=== PATIENT | male | born 1985 ===

== ENCOUNTER → 2023-10-05 | Emergency (ER) | payer OTHER ==
[~2023-10-05] MED LIST: CYCLOBENZAPRINE 10 MG TAB ONE; KETOROLAC 30 MG/ML INJ ONE; dexAMETHasone 10 MG/ML VIAL ONE
--- OUTSIDE RECORDS SUMMARY | 2023-10-05 11:44 | XMS REPORT | Continuity of Care Document ---
Author Name Unknown Address [address] [facility]. 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 Name Role Phone UNKNOWN, REFFERING Primary Care Physician JESSICA Negron Attending Clinician UnavailTrudi Greco MD Attending Clinician + Jessica Reid Attending Clinician [phone] Dorian Becker MD Attending Clinician [phone] DORIAN BECKER Attending Clinician Unavailable KRISHAN_Corinne Attending Clinician UnavailMatt Acosta Attending Clinician Unavailable JESSICA LUNDBERG Admitting Clinician DORIAN Kerns Admitting Clinician Unavailable KRISHAN_HGMDAMili Admitting Clinician Unavaila viviana Physician, No Primary or Family Admitting Clinic richie Unavailable Payers Payer Name Policy Type Policy Number Effective Date Expirati on Date Source [employer] [id number] 2023 00:00:00 [facility] (PPO) [id number] Allergies, Adverse Reactions, Alerts Allergy Name Allergy Type Status Severity Reaction(s) Onset Date Inactive Date Treating Clinician Comments Source No Known Allergie s DA Active U 11-20 00:00: 00 [facility] No Known Allergie s DA Active U 11-20 00:00: 00 [facility] No Known Allergie s DA Active U 05-11 00:00: 00 [facility] No Known Allergie s DA Active U 05-11 00:00: 00 [facility] No Known Contrast Allergie s DA Active U 03-25 00:00: 00 [facility] No Known Drug Allergie s DA Active U 03-25 00:00: 00 [facility] No Known Food Allergie s DA Active U 03-25 00:00: 00 [facility] No Known Other Allergie s DA Active U 03-25 00:00: 00 [facility] NO KNOWN ALLERGIE S Drug Class Active [facility] Social History Social Habit Start Date Stop Date Quantity Comments Source Sexual orientation [facility] Sex Assigned At 1985 00:00:00 1985 00:00:00 [facility] Smoking Status Start Date Stop Date Source Tobacco smoking consumption unknown [facility] Medications Ordered Medication Name Filled Medication Name Start Date Stop Date Current Medication? Ordering Clinician Indication Dosage Frequency Signature (SIG) Comments Components Source acetaminoph en (TYLENOL) tablet 1,000 mg 2022-08 18:30: 00 06-09 18:00 :00 No 1000mg 1,000 mg, Oral, ONCE, 1 dose, On Wed06/09/23 at 1330, Routine [facility] NaCl 0.9% (NS) bolus infusion 1,000 mL 2022-08 18:15: 00 06-09 20:34 :00 No 1000mL at 999 mL/hr, 1,000 mL, IV Infusion, ONCE, 1 dose, On Wed06/09/23 at 1315, ALON [facility] bromphenira mine-pseudo ephedrine-D M (BROMFED DM) 2-30-10 mg/5 mL syrup 2022-08 018 00:00: 00 Yes [id number] 5mL Take 5 mL by mouth 4 (four) times daily as needed for Congestion /Allergies or Cough. [facility] ondansetron (ZOFRAN-ODT ) disintegrat ing tablet 4 mg 2022-08 02:30: 00 05-26 01:44 :00 No 4mg 4 mg, Oral, ONCE, 1 dose, On Wed05/25/23 at 2130, [facility] HYDROcodone -acetaminop hen (NORCO) 10-325 mg tablet 1 tablet 2022-08 02:30: 00 05-26 01:44 :00 No 1{tbl} 1 tablet, Oral, ONCE, 1 dose, On Wed05/25/23 at 2130, [facility] acetaminoph en (TYLENOL) tablet 1,000 mg 2022-08 00:07: 00 05-26 00:13 :00 No 1000mg 1,000 mg, Oral, ONCE, 1 dose, On Wed05/25/23 at 1915, [facility] azithromyci n (ZITHROMAX Z-MADI) 250 mg tablet 2022-08 0 00:00: 00 Yes [id number] Take 500 mg on day 1 then 250 mg daily on days 2-5 [facility] ondansetron 4 mg disintegrat ing tablet 2022-08 0 00:00: 00 Yes [id number] 4mg Take 1 tablet by mouth every 12 (twelve) hours as needed for Nausea and Vomiting (N/V). [facility] benzonatate 100 mg capsule 2022-08 0 00:00: 00 Yes [id number] 100mg Take 1 capsule by mouth 3 (three) times daily as needed for Cough. [facility] azithromyci n (ZITHROMAX Z-MADI) 250 mg tablet 2022-08 0 00:00: 00 Yes [id number] Take 500 mg on day 1 then 250 mg daily on days 2-5 [facility] ondansetron 4 mg disintegrat ing tablet 2022-08 0-03 00:00: 00 Yes [id number] 4mg Take 1 tablet by mouth every 12 (twelve) hours as needed for Nausea and Vomiting (N/V). [facility] benzonatate 100 mg capsule 2022-08 0- 00:00: 00 Yes [id number] 100mg Take 1 capsule by mouth 3 (three) times daily as needed for Cough. [facility] acetaminoph en-codeine 300-30 mg tablet 2022-08 0- 00:00: 00 06-02 04:59 :00 No [id number] 1{tbl} Take 1 tablet by mouth every 6 (six) hours as needed for Pain (scale 7-10) for up to 7 days. Indication s: acute pain [facility] predniSONE 20 mg tablet 2022-08 0 00:00: 00 05-29 04:59 :00 No [id number] 20mg Take 1 tablet by mouth in the morning and 1 tablet in the evening. Do all this for [address] [facility] Vital Signs Vital Name Observation Time Observation Value Comments S ource Systolic blood pressure 2023-06-09 20:37:00 135 mm[Hg] [facility] Diastolic blood pressure 2023-06-09 20:37:00 70 mm[Hg] [facility] Heart rate 2023-06-09 20:37:00 72 /min [facility] Respiratory rate 2023-06-09 20:37:00 16 /min [facility] Oxygen saturation in Arterial blood by Pulse oximetry 2023-06-09 20:37:00 95 /min [facility] Body temperature 2023-06-09 17:00:00 37.28 Alina [facility] Body height 2023-06-09 17:00:00 175.3 cm [facility] Body weight 2023-06-09 17:00:00 102.967 kg [facility] BMI 2023-06-09 17:00:00 33.52 kg/m2 [facility] Systolic blood pressure 2023-05-26 02:00:00 110 mm[Hg] [facility] Diastolic blood pressure 2023-05-26 02:00:00 66 mm[Hg] [facility] Heart rate 2023-05-26 02:00:00 95 /min [facility] Body temperature 2023-05-26 02:00:00 37.72 Alina [facility] Respiratory rate 2023-05-26 02:00:00 16 /min [facility] Oxygen saturation in Arterial blood by Pulse oximetry 2023-05-26 02:00:00 100 /min [facility] Procedures Procedure Date / Time Performed Performing Clinicia n Source XR CHEST 2 VW 2023-06-09 18:11:06 Jessica Lundberg [facility] LIPASE 2023-06-09 18:01:00 Jessica Lundberg [facility] TROPONIN I 2023-06-09 18:01:00 Jessica Lundberg [facility] COMP. METABOLIC PANEL (37412) 2023-06-09 18:01:00 Jessica Lundberg [facility] CBC WITH DIFF 2023-06-09 18:01:00 Jessica Lundberg [facility] URINALYSIS 2023-06-09 18:01:00 Jessica Lundberg [facility] RAPID STREP SCREEN FOR GROUP A 2023-06-09 18:01:00 Jessica Lundberg [facility] RAPID INFLUENZA A/B 2023-06-09 18:01:00 Prateek Lundberg [facility] N-TERMINAL PRO-BNP 2023-06-09 18:01:00 Sherry Lundberg [facility] COVID-19 (ID NOW RAPID TESTING) 2023-06-09 18:01:00 Jessica Lundberg [facility] CONSENT/REFUSAL FOR DIAGNOSIS AND TREATMENT 2023-06-09 16:51:15 Doctor Unassigned, [place] [facility] RAPID STREP SCREEN FOR GROUP A 2023-05-26 00:14:00 Sky Boateng [facility] RAPID INFLUENZA A/B 2023-05-26 00:14:00 Dannie Boateng [facility] COVID-19 (ID NOW RAPID TESTING) 2023-05-26 00:14:00 Sky Boateng [facility] CONSENT/REFUSAL FOR DIAGNOSIS AND TREATMENT 2023-05-25 23:49:39 Doctor Unassigned, [place] [facility] NOTICE OF PRIVACY PRACTICES 2023-05-25 23:49:20 Doctor Unassigned, [place] [facility] Encounters Start Date/Time End Date/Time Encounter Type Admission Type Attending [facility] Care Facility Care Department Encounter ID Source 2019-11-21 14:43:00 Inpatient [facility] [id number] [facility] 2019-10-01 17:53:00 Inpatient [facility] NCER [id number] [facility] 2023-06-09 12:02:00 2023-06-09 15:39:00 Emergency X JESSICA LUNDBERG [facility] ERT [id number] [facility] 2023-06-09 12:02:00 2023-06-09 15:39:00 Emergency Trudi Barnard Folusho F [facility] [id number] [facility] 2023-05-25 19:08:00 2023-05-25 21:31:00 Emergency Dorian Becker [facility] [id number] [facility] 2023-05-25 19:08:00 2023-05-25 21:31:00 Emergency X DORIAN BECKER [facility] ERT [id number] [facility] 2020-12-24 03:12:00 2020-12-24 03:12:00 Outpatient GC_HGMDA_Go nzalez_J PRIV PRIV [id number] [facility] 2020-12-19 03:56:00 2020-12-19 03:56:00 Outpatient GC_HGMDA_Go nzalez_J [facility] PRIV [id number] [facility] 2020-12-19 03:56:00 2020-12-19 03:56:00 Outpatient GC_HGMDA_Go nzalez_J [facility] PRIV [id number] [facility] 2019-12-30 12:20:00 2019-12-30 12:20:00 Outpatient GC_HGMDA_Go nzalez_J [facility] PRIV [id number] [facility] 2019-11-21 14:43:00 2019-11-21 15:31:00 Emergency EM Matt Nunez [facility] [id number] [facility] 2019-05-05 23:52:00 2019-05-05 23:52:00 Emergency E [facility] [id number] [facility] 2017-09-20 22:08:00 2017-09-20 22:08:00 Emergency E [facility] MED [id number] [facility] Results Test Description Test Time Test Comments Results Result Co mments Source [facility] [id number] 19:11:06* Test Item Value Reference Range Interpretation Comme nts NT-proBNP (test code = 97018-8) 34 pg/mL <=125 Lab Interpretation (test cod e = 32528-1) Normal [facility]OLIC PANEL (46072)2023-06-09 19:02:07* Test Item Value Reference Range Interpretation Comme nts NA (test code = 5477501498) 137 mmol/L 135-145 K (test code = 3478947396) 3.9 mmol/L 3.5-5.0 CL (test code = 2027242636) 100 mmol/L 98-108 CO2 TOTAL (test code = 5230142932) 28 mmol/L 23-31 AGAP (test code = 8230028575) 9 2-16 BUN (test code = 3334692245) 11 mg/dL 7-23 GLUCOSE (test code = 2448919309) 98 mg/dL 70-110 CREATININE (test code = 0938290290) 0.70 mg/dL 0.60-1.25 TOTAL BILI (test code = 0353389708) 0.5 mg/dL 0.1-1.1 CALCIUM (test code = 9992117810) 8.7 mg/dL 8.6-10.6 T PROTEIN (test code = 4876306132) 7.4 g/dL 6.3-8.2 ALBUMIN (test code = 1814211252) 4.0 g/dL 3.5-5.0 ALK PHOS (test code = 8919342168) 51 U/L 34-122 ALTv (test code = 1742-6) 33 U/L 5-50 AST(SGOT) (test code = 3429856893) 27 U/L 13-40 eGFR (test code = 7918596401) 126.2 mL/min/1.73m2 DANIELLE (test code = DANIELLE) Association of Glomerular Filtration Rate (GFR) and Staging of Kidney Disease* + + +- +| GFR (mL/min/1.73 m2) ?| With Kidney Damage ?| ?Without Kidney Damage+ ------+ ----+ ------+| ?>90 ?| ?Stage one ?| ? Normal ?+ -+ + -+| ?60-89 ?| ?Stage two ?| ? Decreased GFR ? + + +- +| ?30-59 ?| ?Stage three ?| ? Stage three ? + + +- +| ?15-29 ?| ?Stage four ? | ? Stage four ?+ -+ + -+| ?<15 (or dialysis) ? ?| ?Stage five ? | ? Stage five ?+ -+ + -+ *Each stage assumes the associated GFR level has been in effect for at least three months. ?Stages 1 to 5, with or without kidney disease, indicate chronic kidney disease. Notes: Determination of stages one and two (with eGFR >59mL/min/1.73 m2) requires estimation of kidney damage for at least three months as defined by structural or functional abnormalities of the kidney, manifested by either:Pathological abnormalities or Markers of kidney damage (including abnormalities in the composition of the blood or urine or abnormalities in imaging tests). [facility] 19:01:47* Test Item Value Reference Range Interpretation Comme nts LIPASE (test code = 5800509232) 186 U/L 0-220 Lab Interpretation (test cod e = 72077-3) Normal [facility] WITH [id number] 18:56:07* Test Item Value Reference Range Interpretation Comme nts WBC (test code = 6690-2) 11.59 See_Comment H [Automated messa ge] The system which generated this result transmitted reference range: 4.20 - 10.70 10*3/?L. The reference range was not used to interpret this result as normal/abnormal. RBC (test code = 789-8) 4.64 See_Comment [Automated messa ge] The system which generated this result transmitted reference range: 4.26 - 5.52 10*6/?L. The reference range was not used to interpret this result as normal/abnormal. HGB (test code = 718-7) 15.1 g/dL 12.2-16.4 HCT (test code = 4544-3) 42.1 % 38.4-49.3 MCV (test code = 787-2) 90.7 fL 81.7-95.6 MCH (test code = 785-6) 32.5 pg 26.1-32.7 MCHC (test code = 786-4) 35.9 g/dL 31.2-35.0 H RDW-SD (test code = 11435-7) 40.5 fL 38.5-51.6 RDW-CV (test code = 788-0) 12.3 % 12.1-15.4 PLT (test code = 777-3) 364 See_Comment H [Automated messa ge] The system which generated this result transmitted reference range: 150 - 328 10*3/?L. The reference range was not used to interpret this result as normal/abnormal. MPV (test code = 67726-4) 9.2 fL 9.8-13.0 L NRBC/100 WBC (test code = 8531261932) 0.0 See_Comment [Automated Enablon ssage] The system which generated this result transmitted reference range: 0.0 - 10.0 /100 WBCs. The reference range was not used to interpret this result as normal/abnormal. NRBC x10^3 (test code = 1020758958) See_Comment [Automated messa ge] The system which generated this result transmitted reference range: 10*3/?L. The reference range was not used to interpret this result as normal/abnormal. GRAN MAT (NEUT) % (test code = 770-8) 70.5 % IMM GRAN % (test code = 1489369339) 0.60 % LYMPH % (test code = 736-9) 14.5 % MONO % (test code = 5905-5) 9.8 % EOS % (test code = 713-8) 3.5 % BASO % (test code = 706-2) 1.1 % GRAN MAT x10^3(ANC) (test code = 5447003976) 8.16 10*3/uL 1.99-6.95 H IMM GRAN x10^3 (test code = 3140603343) 0.07 10*3/uL 0.00-0.06 H LYMPH x10^3 (test code = 731-0) 1.68 10*3/uL 1.09-3.23 MONO x10^3 (test code = 742-7) 1.14 10*3/uL 0.36-1.02 H EOS x10^3 (test code = 711-2) 0.41 10*3/uL 0.06-0.53 BASO x10^3 (test code = 704-7) 0.13 10*3/uL 0.01-0.09 H Lab Interpretation (test code = 24869-9) Abnormal [facility] PCR [id number] 01:32:00* Test Item Value Reference Range Interpretation Comme nts STREPTOCOCCUS DYSGALACTIAE (test code = STREPGC) NEGATIVE FOR G/C NEGATIVE STREPA MOLECULAR (test code = STREPAMOL) NEGATIVE FOR GRP A NEGATIVE - XR CHEST 1 [id number] 14:57:00FAX: Matt Nunez MD [phone] [place]: [place] St: PRE Name: SANCHO WHITE [facility] FSED : 1985 Age/S: 34/M [address] [facility] [address] Unit #: [id number] Loc: [facility] [address] Phys: Matt Nunez MD [place] [id number] Acct: [id number] Dis Date: Status: PRE ER PHONE #: Exam Date: 11/21/2019 9327 FAX #: Reason: concern for PNA EXAMS: CPT CODE: [id number] XR CHEST 1 V 62953 HISTORY: Pneumonia. COMPARISON: None available. Location: [facility]. No acute infiltrates, effusion or congestion is noted. The cardiac and mediastinal silhouette are within normal limits. IMPRESSION: No acute infiltrates, effusion or congestion. at 8496 Reported and signed by: Juan Alarcon M.D. CC: Matt Nunez MD Technologist: HUI CHOI(R)(CT) Trnscrd Date/Time/By: 11/21/2019 (0515) : By: [email or web address] Orig Print D/T: S: 11/21/2019 (0123) PAGE 1 Signed Report- XR CHEST 1 [id number] 14:57:00FAX: Matt Nunez MD [phone] [place]: [place] St: DEP Name: SANCHO WHITE [facility] FSED : 1985 Age/S: 34/M [address] [facility] N Unit #: [id number] Loc: [facility] [address] Phys: Matt Nunez MD [place], [place] [address] Acct: [id number] Dis Date: Status: DEP ER PHONE #: Exam Date: 11/21/20191456 FAX #: Reason: concern for PNA EXAMS: CPT CODE: [id number] XR CHEST 1 V 21960 HISTORY: Pneumonia. COMPARISON: None available. Location: [facility]. No acute infiltrates, effusion or congestion is noted. The cardiac and mediastinal silhouette are within normal limits. IMPRESSION: No acute infiltrates, effusion or congestion. at 1457 Reported and signed by: Juan Alarcon M.D. CC: Matt Nunez MD Technologist: HUI ABDUL RT(R)(CT) Trnscrd Date/Time/By: 11/21/2019 (7493) : By: [email or web address] Orig Print D/T: S: 11/21/2019 (8192) PAGE 1 Signed ReportSTREPTOCOCCUS PCR SCREEN 2019-10-02 21:15:00* Test Item Value Reference Range Interpretation Comme nts STREPTOCOCCUS DYSGALACTIAE (test code = STREPGC) NEGATIVE FOR G/C NEGATIVE STREPA MOLECULAR (test code = STREPAMOL) NEGATIVE FOR GRP A NEGATIVE - XR CHEST 2 [id number] 18:43:00FAX: Pau Justin MD [phone] [place]: [place] St: REG Name: WHITESANCHO CHARLES [facility] FSED : 1985 Age/S: 34/M [address] [facility] N Unit #: [id number] Loc: [facility] [address] Phys: Jesse Justin MD [place], [place] [address] Acct: [id number] Dis Date: Status: REG ER PHONE #: Exam Date: 10/01/2019 1832 FAX #: Reason: cough EXAMS: CPT CODE: [id number] XR CHEST 2 V 39870 EXAM: Chest X-ray, 2 views; CLINICAL HISTORY: Cough and shortness of breath; FINDINGS: The lungs are clear, no infiltrates, no edema; no effusions; no pneumothorax; normal cardiomediastinal silhouette. IMPRESSION: Normal chest x-ray. Location code: at 1843 Reported and signed by: Sotero Tobin M.D. CC: Pau Justin MD Technologist: Enrrique Hill Trnscrd Date/Time/By: 10/01/2019 (1842) : By: [email or web address] Orig Print D/T: S: 10/01/2019 (1845) PAGE 1 [facility] [id number] 00:24:15* Test Item Value Reference Range Interpretation Comme nts Glucose POC (test code = Glucose POC) 98 mg/dL 70-115 If you consi epifanio your patient critically ill, the Alayna-Accu Check Infrom II meter should not be used for Glucose determination. Draw a venous Glucose and send to the main Lab for analysis. Comprehensive Metabolic [id number] 22:26:12* Test Item Value Reference Range Interpretation Comme nts Sodium Level (test code = So dium Level) 144.0 mmol/L 135.0-145.0 Potassium Level (test code = Potassium Level) 3.6 mmol/L 3.5-5.1 Chloride Level (test code = Chloride Level) 105 mmol/L 98-105 CO2 (test code = CO2) 27 mmol/L 22-29 Anion Gap (test code = Anion Gap) 12 mmol/L 7-16 BUN (test code = BUN) 12.20 mg/dL 6.00-20.00 Creatinine Level (test code = Creatinine Level) 0.90 mg/dL 0.70-1.20 BUN/Creat Ratio (test code = BUN/Creat Ratio) 14 N Glucose Level (test code = Glucose Level) 138 mg/dL 70-115 H Calcium Level (test code = Calcium Level) 9.0 mg/dL 8.3-10.5 Alk Phos (test code = Alk Phos) 62 U/L 40-129 Bilirubin Total (test code = Bilirubin Total) 0.3 mg/dL 0.1-0.9 Albumin Level (test code = Albumin Level) 4.6 g/dL 3.5-5.2 Protein Total (test code = Protein Total) 7.3 g/dL 6.4-8.3 ALT (test code = ALT) 44 U/L 1-41 H AST (test code = AST) 28 U/L 1-40 Globulin (test code = Globulin) 2.7 g/dL 2.9-3.1 L A/G Ratio (test code = A/G Ratio) 1.7 ratio N Comprehensive Metabolic [id number] 22:26:12* Test Item Value Reference Range Interpretation Comme nts Sodium Level (test code = Sodium Level) 144.0 mmol/L 135.0-145.0 Potassium Level (test code = Potassium Level) 3.6 mmol/L 3.5-5.1 Chloride Level (test code = Chloride Level) 105 mmol/L 98-105 CO2 (test code = CO2) 27 mmol/L 22-29 Anion Gap (test code = Anion Gap) 12 mmol/L 7-16 BUN (test code = BUN) 12.20 mg/dL 6.00-20.00 Creatinine Level (test code = Creatinine Level) 0.90 mg/dL 0.70-1.20 BUN/Creat Ratio (test code = BUN/Creat Ratio) 14 N Glucose Level (test code = Glucose Level) 138 mg/dL 70-115 H Calcium Level (test code = Calcium Level) 9.0 mg/dL 8.3-10.5 Alk Phos (test code = Alk Phos) 62 U/L 40-129 Bilirubin Total (test code = Bilirubin Total) 0.3 mg/dL 0.1-0.9 Albumin Level (test code = Albumin Level) 4.6 g/dL 3.5-5.2 Protein Total (test code = Protein Total) 7.3 g/dL 6.4-8.3 ALT (test code = ALT) 44 U/L 1-41 H AST (test code = AST) 28 U/L 1-40 Globulin (test code = Globulin) 2.7 g/dL 2.9-3.1 L A/G Ratio (test code = A/G Ratio) 1.7 ratio N eGFR AA (test code = eGFR AA) >60 mL/min/1.73 m2 N eGFR (estimated Glomerular Filtration Rate) is an estimated value, calculated from the patient's serum creatinine using the MDRD equation. It is NOT the patient's actual GFR. The eGFR provides a more clinically useful measure of kidney disease than serum creatinine alone.This calculation takes sex and race into account, if the information is provided. If the race is not provided, and the patient is -[place], multiply by 1.212. If sex is not provided, and the patient is female, multiply by 0.742. Results for patients <18 years of age have not been validated by the MDRD study and should be interpreted with caution. eGFR Result Interpretation:eGFR > or = 60 is in the Normal RangeeGFR < 60 may mean kidney diseaseeGFR < 15 may mean kidney failure Ranges recommended by the National Kidney Foundation, http://nkdep.nih.gov Comprehensive Metabolic [id number] 22:26:12* Test Item Value Reference Range Interpretation Comme nts Sodium Level (test code = Sodium Level) 144.0 mmol/L 135.0-145.0 Potassium Level (test code = Potassium Level) 3.6 mmol/L 3.5-5.1 Chloride Level (test code = Chloride Level) 105 mmol/L 98-105 CO2 (test code = CO2) 27 mmol/L 22-29 Anion Gap (test code = Anion Gap) 12 mmol/L 7-16 BUN (test code = BUN) 12.20 mg/dL 6.00-20.00 Creatinine Level (test code = Creatinine Level) 0.90 mg/dL 0.70-1.20 BUN/Creat Ratio (test code = BUN/Creat Ratio) 14 N Glucose Level (test code = Glucose Level) 138 mg/dL 70-115 H Calcium Level (test code = Calcium Level) 9.0 mg/dL 8.3-10.5 Alk Phos (test code = Alk Phos) 62 U/L 40-129 Bilirubin Total (test code = Bilirubin Total) 0.3 mg/dL 0.1-0.9 Albumin Level (test code = Albumin Level) 4.6 g/dL 3.5-5.2 Protein Total (test code = Protein Total) 7.3 g/dL 6.4-8.3 ALT (test code = ALT) 44 U/L 1-41 H AST (test code = AST) 28 U/L 1-40 Globulin (test code = Globulin) 2.7 g/dL 2.9-3.1 L A/G Ratio (test code = A/G Ratio) 1.7 ratio N eGFR AA (test code = eGFR AA) >60 mL/min/1.73 m2 N eGFR (estimated Glomerular Filtration Rate) is an estimated value, calculated from the patient's serum creatinine using the MDRD equation. It is NOT the patient's actual GFR. The eGFR provides a more clinically useful measure of kidney disease than serum creatinine alone.This calculation takes sex and race into account, if the information is provided. If the race is not provided, and the patient is -[place], multiply by 1.212. If sex is not provided, and the patient is female, multiply by 0.742. Results for patients <18 years of age have not been validated by the MDRD study and should be interpreted with caution. eGFR Result Interpretation:eGFR > or = 60 is in the Normal RangeeGFR < 60 may mean kidney diseaseeGFR < 15 may mean kidney failure Ranges recommended by the National Kidney Foundation, http://nkdep.nih.gov eGFR Non-AA (test code = eGFR Non-AA) >60.00 mL/min/1.73 m2 N eGFR (estimated Glomerular Filtration Rate) is an estimated value, calculated from the patient's serum creatinine using the MDRD equation. It is NOT the patient's actual GFR. The eGFR provides a more clinically useful measure of kidney disease than serum creatinine alone.This calculation takes sex and race into account, if the information is provided. If the race is not provided, and the patient is -[place], multiply by 1.212. If sex is not provided, and the patient is female, multiply by 0.742. Results for patients <18 years of age have not been validated by the MDRD study and should be interpreted with caution. eGFR Result Interpretation:eGFR > or = 60 is in the Normal RangeeGFR < 60 may mean kidney diseaseeGFR < 15 may mean kidney failure Ranges recommended by the National Kidney Foundation, http://nkdep.nih.gov Urinalysis with Culture, if feqawdkpq1707-63-37 22:05:22* Test Item Value Reference Range Interpretation Comme nts UA Color (test code = UA Color) YELLO Yellow UA Appear (test code = UA Appear) CLEAR Clear UA pH (test code = UA pH) 5 N UA Spec Grav (test code = UA Spec Grav) 1.027 1.001-1.035 UA Glucose (test code = UA Glucose) 300 mg/dL Negative A UA Bili (test code = UA Bili) NEG Negative UA Ketones (test code = UA Ketones) 5 mg/dL Negative UA Blood (test code = UA Blood) NEG Negative UA Protein (test code = UA Protein) NEG Negative UA Urobilinogen (test code = UA Urobilinogen) 0.2 mg/dL N UA Nitrite (test code = UA Nitrite) NEG Negative UA Leuk Est (test code = UA Leuk Est) NEG Negative UA Micro Ind? (test code = UA Micro Ind?) Not Indicated Not Indicated Result cre ated by rule GL_SJM_UA_MICRO_IN D CT Stone [id number] 21:17:07Patient: SANCHO WIHTE Date/Time04/30/2019 21:01 CDTReason for ExamFlank painReportCT Stone ProtocolHISTORY: Flank painCOMPARISON: CT abdomen and pelvis dated March 01, 2011TECHNIQUE: Axial images of the abdomen and pelvis were obtained without intravenous or oral contrast. Coronal and sagittal reformats were provided. One or more of the following dose reduction techniqueswere used: Automated exposure control, adjustment of the mA and/or kV according to patient size, and/or utilization of iterative reconstruction technique.FINDINGS:Lower thorax: Unremarkable.Hepatobiliary: Benign-appearing calcifications are seen in segment IV of the liver adjacent to the gallbladder (series 2, image 57). These are new from the comparison study. No intra or extrahepatic biliary ductal dilatation is identified.Gallbladder: No calcified gallstones are identified. The gallbladder wall appears normal.Spleen: Unremarkable.Pancreas: Unremarkable.Adrenals: Unremarkable.Kidneys/ureters: A 1.9 cm cyst is seen in the mid left kidney. No hydronephrosis or nephrolithiasis is identified.Bowel: The stomach is moderately distended with fluid and food debris. The small bowel loops are nondilated. The appendix is normal. A moderate amount of stool seen in the colon and rectum.Pelvic organs/bladder: The urinary bladder is unremarkable.Vessels: Unremarkable.Lymph nodes: No lymphadenopathy.Peritoneum/Retroperitoneum: No ascites or free air is identified.Bones/soft tissues: No destructive bony lesions.IMPRESSION:1. No renal or ureteral stone is identified.2. No acute abdominal finding.Exam Date/Time04/30/2019 21:01 CDTReportLOCATION: R16 Final Dictated by: MD Smalls Adam FDictated DT/TM: 04/30/2019 9:10 pmSigned by: MD Smalls Adam FSigned (Electronic Signature): 04/30/2019 9:17 pmComplete Blood Count with Rgycfrxhvwbn1566-12-03 20:48:48* Test Item Value Reference Range Interpretation Comme nts WBC (test code = WBC) 12.4 x10 4.4-10.5 H RBC (test code = RBC) 5.01 x10 4.10-5.70 Hgb (test code = Hgb) 15.2 g/dL 13.4-17.4 Hct (test code = Hct) 44.0 % 38.7-52.0 MCV (test code = MCV) 87.80 fL 80.00-100.00 MCHC (test code = MCHC) 34.50 g/dL 32.00-37.50 MCH (test code = MCH) 30.3 pg 27.0-32.5 RDW CV (test code = RDW CV) 12.1 % 11.5-14.5 Platelets (test code = Platelets) 326.0 x10 140.0-440.0 MPV (test code = MPV) 8.9 fL N Slide Review (test code = Slide Review) Auto Auto Result crea asuncion by GL_SJM_SLIDE_REV_AUTO nRBC (test code = nRBC) 0 N NRBC Abs (test code = NRBC Abs) 0.00 x10 N IPF (test code = IPF) 0 % N Automated [id number] 20:48:48* Test Item Value Reference Range Interpretation Comme nts Neutro Auto (test code = Krissy tro Auto) 63.2 % 36.0-70.0 Lymph Auto (test code = Lymph Auto) 24.9 % 12.0-44.0 [place] Auto (test code = [place] Auto) 6.7 % 0.0-11.0 Eos, Auto (test code = Eos, Auto) 4.1 % 0.0-7.0 Basophil Auto (test code = B asophil Auto) 0.7 % 0.0-2.0 Neutro Absolute (test code = Neutro Absolute) 7.8 x10 1.6-7.4 H Lymph Absolute (test code = Lymph Absolute) 3.09 x10 .50-4.60 [place] Absolute (test code = M beth Absolute) .83 x10 .00-1.20 Eos Absolute (test code = Eo s Absolute) 0.51 x10 0.00-0.74 Baso Absolute (test code = B aso Absolute) 0.09 x10 0.00-0.21 IG [id number] 20:48:48* Test Item Value Reference Range Interpretation Comme nts IG (test code = IG) 0.4 % 0.0-5.0 IG Abs (test code = IG Abs) 0 x10 N XR SHOULDER 2+V.DRBNDXVR-IJBKZ7605-16-30 01:00:25STUDY: Shoulder radiographHISTORY: Pain COMPARISON: No PriorTECHNIQUE: Internal rotation, external rotation and transscapular Y viewof the right shoulder. This was performed during after hours services 09/21/2017 1:00 AM.SITE: 16FINDINGS:There is no acute fracture or glenohumeral dislocation. The acromioclavicular joint is intact. There are no abnormal soft tissuecalcifications in the region ofthe rotator cuff to suggest calcifictendinitis. The visualized lung is clear.IMPRESSION:No acute osseous abnormality of the right shoulder. Notes Date/Time Note Provider Source 2019-11-21 15:16:00 [id number]++mUbUAWKGNRPECmknYjjsd+ OuT2UThIIv5yMpd3uOsavztsxbz7ENzOiE2739-39-25E83:1 6:00 [facility] ([facility])EMERGENCY PROVIDER REPORTREPORT#:[id number] REPORT STATUS: SignedDATE:11/21/19 TIME: 1515 PATIENT: SANCHO WHITE UNIT #: [id number]#: [id number] ROOM/BED:AGE: 34 SEX: M PCP PHYS: No Primary or Family PhysicianSERVICE AUTHOR: Matt Nunez MD * ALL edits or amendments must be made on the electronic/computer document * HPI-General Illness Free Text HPI NotesFree Text HPI NotesPatient presents with chest congestion. Patient was seen and worked up yesterday with no emergent findings. Returns to the ED because he "feels congested" .. Patient has no new symptoms no new complaints. GeneralInitial Greet Date/Time 11/21/19 1448 PresentationChief Complaint Congested Review of Systems Review of SystemsConstitutionalDenies: Chills, Fever. EyesDenies: Blurred bilat, Discharge bilat, Redness bilat. Ears/Nose/ThroatDenies: Sinus problem, Sore throat. RespiratoryDenies: Cough, non-productive, Dyspnea on exertion, Pleuritic pain, Shortness ofbreath, Wheezing. CardiovascularDenies: Chest pain, Edema, Syncope. GIDenies: Abdominal pain, Nausea, Vomiting. Past Medical History - AdultStated Complaint COUGHAllergiesCoded Allergies:No Known Allergies (11/21/19) Smoking status for patients 13 years old or older: Current every day smoker Physical Exam Vital SignsVital SignsFirst Documented: Result Date Time Pulse Ox 97 11/20 1443 B/P 160/97 11/20 1443 B/P Mean 118 11/20 1443 O2 Delivery Room air 11/20 1443 Temp 36.8 11/20 1443 Pulse 81 11/20 1443 Resp 18 11/20 1443 Last Documented: Result Date Time Pulse Ox 97 11/20 1443 B/P 160/97 11/20 1443 B/P Mean 118 11/20 1443 O2 Delivery Room air 11/20 1443 Temp 36.8 11/20 1443 Pulse 81 11/20 1443 Resp 18 11/20 1443 Review of Vital Signs Reviewed Basic Physical ExamBasic PE GEN: Well appearing/NAD, HEAD: Atraumatic/NC, EYES: PERRL, conj clear, ENT: Membranes moist, NECK: Supple, RESP: No resp distress, CV: Reg rate rhythm, ABD: Soft/non-tender, EXT: No gross abnormality, SKIN: No rashes, warm/dry Interpretation Diagnostics Lab Results InterpretationResultsLaboratory Tests: 11/20 1456 Serology Streptococcus sp PCR (NEGATIVE) NEGATIVE FOR G/C Strep pneumoniae (PCR) (NEGATIVE) NEGATIVE FOR GRP A Microbiology: Date/Time Procedure - Status Source Growth 11/20 1456 Group A Streptococcus Screen (TOMASA) - COMP THROAT Recent Impressions:RADIOLOGY - XR CHEST 1 V 11/20 1449 Report Impression - Status: SIGNED Entered: 11/21/2019 1501 IMPRESSION: No acute infiltrates, effusion or congestion.Impression By: Lori Alarcon M.D. Re-Evaluation MDM Free Text MDM NotesFree Text MDM NotesPatient with no emergent findings on imaging. Will discharge with primary care follow-up. Patient Discharge Departure Vital Signs/ConditionVital SignsFirst Documented: Result Date Time Pulse Ox 97 11/20 1443 B/P 160/97 11/20 1443 B/P Mean 118 11/20 1443 O2 Delivery Room air 11/20 1443 Temp 36.8 11/20 1443 Pulse 81 11/20 1443 Resp 18 11/20 1443 Last Documented: Result Date Time Pulse Ox 97 11/20 1443 B/P 160/97 11/20 1443 B/P Mean 118 11/20 1443 O2 Delivery Room air 11/20 1443 Temp 36.8 11/20 1443 Pulse 81 11/20 1443 Resp 18 11/20 1443 All vital signs available at the time of this entry have been reviewed. Clinical ImpressionClinical ImpressionPrimary Impression: Chest congestion Disposition DecisionDischarge )( Discharged to Home Yes )( Time 1517 )( Date 11/21/19 Discharge/Care PlanReferralsNo Primary or Family Physician (PCP) at 0859RPT #:[id number] OF REPORTEDEmergency department jszjot9976-42-72A49:16:00V.[id number] ilable for patient uawaLORFFZBOPKZGPY9504-71-99Z79:59:40 [facility] 2019-10-01 18:20:00 [id number] HhtyMVUbBKN5FL7emixkl9y1X6V+T tAPYijihi6xKmNw4wNUkwp2GptdvFjGNzx0704-40-10I37:2 0:00 [facility] ([facility] PROVID[facility] REPORTREPORT#:[id number] REPORT STATUS: SignedDATE:10/01/19 TIME: 1819 PATIENT: SANCHO WHITE UNIT #: [id number]#: [id number] ROOM/BED:AGE: 34 SEX: M PCP PHYS: No Primary or Family PhysicianSERVICE AUTHOR: Pau Justin MD * ALL edits or amendments must be made on the electronic/computer document * HPI-URI/Cough/Cold GeneralConfirmed Patient YesInitial Greet Date/Time 10/01/19 1756PCPJulian Julian PresentationChief Complaint Cough, non-productiveHx Obtained From PatientOnset Occurred Days ago (3)Symptom Duration Since onsetProgression since Onset ConstantLocation ChestQuality TightnessRadiation Does not radiateSeverity: Onset MildSeverity: Current MildAssociated withReports: Chest pain (when coughing), Cough, Rhinorrhea, Shortness of breath, Sputum production. Denies: Anorexia, Diarrhea, Fever, Myalgia, Vomiting. Associated Other Pt denies other symptomsExacerbated by Exposure-environmentalRelieved by Rest Free Text HPI NotesFree Text HPI Tytpt98-jdci-lod male presents with cough with productive greenish sputum for the past 3 days. He is also complaining of sore throat shortness of breath. Patient states he has chest pain on his right side when he coughs. Patient states that he had some blood-tinged sputum today. Denies any fever, chills, nausea, vomiting, diarrhea, body aches. Review of Systems ROS StatementsAll systems rev neg except as marked. Focused Review of SystemsConstitutionalDenies: Chills, Fever. Ears/Nose/ThroatReports: Nasal congestion, Sore throat. Denies: Earache R, Earache L, Earache bilat, Hearing loss R. RespiratoryReports: Cough, productive, Shortness of breath. Denies: Wheezing. GIDenies: Abdominal pain, Diarrhea, Nausea, Vomiting. Additional Review of SystemsCardiovascularReports: Chest pain (when coughing). Denies: Palpitations, Syncope. Past Medical History - AdultStated Complaint SOBAllergiesCoded Allergies:No Known Allergies (05/11/16) Home MedicationsReported MedicationspredniSONE 20 MG PO BID ALBUTEROL (PROAIR HFA 90 MCG/ACT) 1 PUFF INH RTQ4H PRN PRN SOB CETIRIZINE/PSEUDOEPH ER (ZyrTEC-D 5/120 MG) 1 TAB PO Q12H IBUPROFEN (MOTRIN) 600 MG PO Q6H PRN PRN PAIN PROMETHAZINE/CODEINE (PHENERGAN WITH CODEINE 6.25-10 MG/5ML) Review of Nursing Notes Rev avail, and agreePt reports no significant: Past medical history, Past surgical historyAlcohol Use Denies EtOH useDrug Use Denies recreational drugsSmoking status for patients 13 years old or older: Former Smoker Physical Exam Vital SignsVital SignsFirst Documented: Result Date Time Pulse Ox 95 10/01 1754 B/P 131/81 10/01 1754 B/P Mean 97 10/01 1754 O2 Delivery Room air 10/01 1754 Temp 37.0 10/01 1754 Pulse 94 10/01 1754 Resp 18 10/01 1754 Last Documented: Result Date Time Pulse Ox 96 10/01 1927 B/P 130/92 10/01 1927 B/P Mean 104 10/01 1927 O2 Delivery Room air 10/01 1927 Temp 36.9 10/01 1927 Pulse 88 10/01 1927 Resp 20 10/01 1927 Review of Vital Signs Reviewed Focused PEGeneral/Const General/Const Awake, Alert, No acute distress, Well appearing, Well developed, Well hydrated, Well nourished, Cooperative, Not toxic appearing Appearance/Presentation Obese. Eyes Eyes Atraumatic, PERRL, EOMIEars/Nose/Throat Ears/Nose/Throat Atraumatic, Airway patent, Mucous membranes moist, Pharynx NL Text/Dict Notesnasal congestionMS Neck Neck Atraumatic, Supple, No meningismus, Full range of motionResp/Chest Respiratory/Chest Atraumatic, Breath sounds = bilat, No respiratory distress Text/Dict Notescoarse breath sounds bilaterallyCardiovascular Cardiovascular Heart rate NL, Regular rhythm, Heart sounds NLAbdomen/GI Abdomen/GI Atraumatic, Soft, Non-tender, No guarding, No rebound, BS normoactive, No distentionSkin Skin Atraumatic, Color NL, No rash, Warm, Dry, Intact, No swellingNeurologic Neurologic Oriented X3, Speech NL, No motor deficits, No sensory deficits, CNII - XII intact, Cerebellar NL, Gait NL Additional PEMS Head Head Atraumatic, NormocephalicMS Back Back Atraumatic, Inspection NL, Full range of motion, Painless range of motion, Non-tender, No midline vertebral tend, No paraspinal tenderness Interpretation Diagnostics Lab Results InterpretationConsiderations Reviewed prior recordsResultsMicrobiology: Date/Time Procedure - Status Source Growth 10/01 1821 Influenza Virus Type B Antigen - COMP NASAL 10/01 1821 Influenza Virus Type A Antigen - COMP NASAL 10/01 1821 Group A Streptococcus Screen (TOMASA) - COMP THROAT Recent Impressions:RADIOLOGY - XR CHEST 2 V 10/01 183 Report Impression - Status: SIGNED Entered: 10/01/2019 184 IMPRESSION: Normal chest x-ray. Location code: GWImpression By: Delon Tobin M.D. Lab Imaging StatementLaboratory radiographic studies reviewed and considered in the medical decision-making. Point of Care TestingMicro Interpretation Influenza rapid - neg, Strep rapid - negPulse Oximetry Pulse Ox % 95 On: Room air Interpretation Interpreted by me, Pulse oximetry normal Time 1755 ECG #1 InterpretationDate 10/01/19Time 1835Interpreted by ED physicianNL ECG Interpretation Normal rate, Normal sinus rhythm, No acute ischemic changes, No STEMI, Normal QRS, Normal ST waves, Normal T waves, Adequate tracingRate 87 Re-Evaluation MDM Re-Evaluation/ProgressRe-Evaluation/Progress Text/Dict NotePatient feeling improved. Breath sounds are clear to auscultation bilaterally after decadron PO and duoneb aerosol. Encouraged supportive care. Return and discharge instructions given. Time of Re-Eval 1851 Re-Eval Status Improved ED CourseMedication(s) OrderedMedication(s) Ordered:Autonomic Drugs Sig/Edy Start time Last Medication Dose Route Stop Time Status Admin Albuterol/Ipratropium 3 ML X1ED STA 10/01 1804 DC 10/01 INH 10/01 Hormones And Synthetic Substit Sig/Edy Start time Last Medication Dose Route Stop Time Status Admin Dexamethasone 10 MG X1ED STA 10/01 1804 DC 10/01 PO 10/01 Patient Discharge Departure Vital Signs/ConditionVital SignsFirst Documented: Result Date Time Pulse Ox 95 10/01 1754 B/P 131/81 10/01 1754 B/P Mean 97 10/01 1754 O2 Delivery Room air 10/01 1754 Temp 37.0 10/01 1754 Pulse 94 10/01 1754 Resp 18 10/01 1754 Last Documented: Result Date Time Pulse Ox 96 10/01 1927 B/P 130/92 10/01 1927 B/P Mean 104 10/01 1927 O2 Delivery Room air 10/01 1927 Temp 36.9 10/01 1927 Pulse 88 10/01 1927 Resp 20 10/01 1927 All vital signs available at the time of this entry have been reviewed. Condition Stable Clinical ImpressionClinical ImpressionPrimary Impression: Viral URI with coughSecondary Impressions: Cough Disposition DecisionDischarge )( Discharged to Home Yes )( Time 1909 )( Date 10/01/19 Discharge/Care PlanCounseled Regarding Diagnosis, Lab results, Imaging studies, Prescriptions, Needfor follow-up, When to return to EDPrescriptionsalbuterol HFAprednisone 60 mg daily x 5 daysbromfed DMPrescriptions Reviewed Risks, Benefits, Alternative treatment Discharge NoteI have spoken with the patient and/or caregivers. I have explained the patient'scondition, diagnoses and treatment plan based on the information available to meat this time. I have answered the patient's and/or caregiver's questions and addressed any concerns. The patient and/or caregivers have as good an understanding of the patient's diagnosis, condition and treatment plan as can beexpected at this point. The vital signs have been stable. The patient's condition is stable and appropriate for discharge from the emergency department. The patient will pursue further outpatient evaluation with the primary care physician or other designated or consulting physician as outlined in the discharge instructions. The patient and/or caregivers are agreeable to this planof care and follow-up instructions have been explained in detail. The patient and/or caregivers have received these instructions in written format and have expressed an understanding of the discharge instructions. The patient and/or caregivers are aware that any significant change in condition or worsening of symptoms should prompt an immediate return to this or the closest emergency department or a call to 911. Quality MeasuresBP F/U for HTN Referred for BP f/u < 4wk, F/u with PCP/other [id number] ECG for CP Performed documentedPharyngitis Testing Group A Strep test docSmoking Cessation Screened, non userTobacco Screening/Cessation 18 years or older, Denies tobacco use at 2000RPT #:[id number] OF REPORTEDEmergency department mnaama0578-16-80A59:20:00V.[id number] ilable for patient hhnaIJGMAMNCCVRJEB7850-31-98W85:00:18 [facility]
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
--- NOTE | 2023-10-05 12:00 | ER ---
Nurse's Notes [facility] Name: Teddy Dunn Age: 38 yrs Sex: Male : 1985 Arrival Date: 10/05/2023 Time: 11:40 Bed 19 Private MD: Diagnosis: back pain Presentation: 10/05 11:49 Chief complaint: Patient states: "My previous back injury is acting up since moving mb9 some stuff 1 week ago. It hurts on my neck and down the left side of my leg. It hurts to pee, shit, fart, and breathe.". Coronavirus screen: Vaccine status: Patient reports receiving the 2nd dose of the covid vaccine. Ebola Screen: No symptoms or risks identified at this time. Initial Sepsis Screen: Does the patient meet any 2 criteria? No. Patient's initial sepsis screen is negative. Does the patient have a suspected source of infection? No. Patient's initial sepsis screen is negative. Risk Assessment: Do you want to hurt yourself or someone else? Patient reports no desire to harm self or others. Onset of symptoms was October 05, 2023. 11:49 Method Of Arrival: Ambulatory mb9 11:49 Acuity: KANCHAN 4 mb9 Triage Assessment: 13:19 General: Appears uncomfortable, Behavior is cooperative. tl4 Historical: - Allergies: 11:48 No Known Allergies; mb9 - Home Meds: 11:48 None [Active]; mb9 - PMHx: 11:48 Back injury; mb9 - PSHx: 11:48 renal stent; mb9 - Immunization history:: Adult Immunizations up to date. - Social history:: Smoking status: Patient reports the use of cigarette tobacco products, denies chronic smoking, but will smoke occasionally. - Family history:: not pertinent. Screenin:18 [facility] ED Fall Risk Assessment (Adult) History of falling in the last 3 months, tl4 including since admission No falls in past 3 months (0 pts) Confusion or Disorientation No (0 pts) Intoxicated or Sedated No (0 pts) Impaired Gait No (0 pts) Mobility Assist Device Used No (0 pt) Altered Elimination No (0 pt) Score/Fall Risk Level 0 - 2 = Low Risk Oriented to surroundings, Maintained a safe environment, Educated pt \\T\\ family on fall prevention, incl call for assistance when getting out of bed, Assessed \\T\\ reinforced patient's understanding of fall precautions, Provided non-skid footwear, Hourly rounding (assess needs \\T\\ fall precautionary measures) done, Used ambulatory aids as needed (educated on \\T\\ assisted with), Used gait belt as appropriate. Abuse screen: Denies threats or abuse. Denies injuries from another. Nutritional screening: No deficits noted. Tuberculosis screening: No symptoms or risk factors identified. Assessment: 12:10 Reassessment: No changes from previously documented assessment. Patient and/or family tl4 updated on plan of care and expected duration. Pain level reassessed. Patient is alert, oriented x 3, equal unlabored respirations, skin warm/dry/pink. Patient states symptoms have not improved. Pain: Complains of pain in back. Neuro: Level of Consciousness is awake, alert, obeys commands, Oriented to person, place, time, situation, Brake Press Operator are equal bilaterally Moves all extremities. Gait is due to pain pt has impaired gait. Speech is normal, Facial symmetry appears normal, Pupils are PERRLA, Intact. Vital Signs: 11:49 BP 167 / 72; Pulse 72; Resp 18; Temp 98.4; Pulse Ox 97% on R/A; Weight 111.13 kg; mb9 Height 5 ft. 8 in. ; Pain 10/10; 13:17 BP 163 / 88; Pulse 85; Resp 16; Temp 98.4(O); Pulse Ox 100% on R/A; Pain 8/10; tl4 11:49 Body Mass Index 37.25 (111.13 kg, 172.72 cm) mb9 11:49 Pain Scale: Adult mb9 13:17 Pain Scale: Adult tl4 Vitals: 13:17 Cardiac Rhythm Assessment Regular. tl4 Rajat Coma Score: 13:17 Eye Response: spontaneous(4). Motor Response: obeys commands(6). Verbal Response: tl4 oriented(5). Total: 15. ED Course: 11:42 Patient arrived in ED. mg5 11:43 Rush Prieto MD is Attending Physician. rt 11:48 Angelina Velazquez, RN is Primary Nurse. ph 11:48 Arm band placed on. mb9 11:51 Triage completed. mb9 12:18 CT C Spine In Process Unspecified. EDMS 12:18 CT Thoracic Spine Wo Cont In Process Unspecified. EDMS 12:18 CT Lumbar Spine Wo Con In Process Unspecified. EDMS 12:43 Knee Left 3 View XRAY In Process Unspecified. EDMS 13:02 Doc Lal DO is Referral Physician. rt 13:18 Patient has correct armband on for positive identification. Placed in gown. Bed in low tl4 position. Call light in reach. Side rails up X 1. Provided Education on: ed process. Client placed on continuous cardiac and pulse oximetry monitoring. NIBP monitoring applied. Door closed. Noise minimized. Lights dimmed. Moved to private room. Warm blanket given. Pillow given. 13:19 No provider procedures requiring assistance completed. Patient did not have IV access tl4 during this emergency room visit. Administered Medications: 12:47 Drug: Dexamethasone IM 10 mg IM once Route: IM; Site: left ventrogluteal; tl4 13:16 Follow up: Response: No adverse reaction tl4 12:48 Drug: Ketorolac IM 15 mg IM once Route: IM; Site: right ventrogluteal; tl4 13:16 Follow up: Response: No adverse reaction tl4 12:51 Drug: Cyclobenzaprine PO 10 mg PO once Route: PO; tl4 13:16 Follow up: Response: No adverse reaction tl4 13:11 CANCELLED (Duplicate Order): Decadron - [id number] mg IVP once tl4 13:11 CANCELLED (Duplicate Order): [id number] mg IVP once tl4 Medication: 13:20 VIS not applicable for this client. tl4 Outcome: 12:00 ER care complete, transfer ordered by MD. rt 13:02 Discharge ordered by MD. rt 13:19 Discharged to home ambulatory, tl4 13:19 Condition: stable 13:19 Discharge instructions given to patient, Instructed on discharge instructions, follow up and referral plans. medication usage, Demonstrated understanding of instructions, follow-up care, medications, Prescriptions given X 2, 13:20 Patient left the ED. tl4 Signatures: Dispatcher [employer] Angelina Mcneal, RN RN Sheyla, Rach Fish RN RN mb9 Rush Prieto MD MD rt Ursula King mg5 Davon Salazar RN RN tl4
--- NOTE | 2023-10-05 12:26 | RAD REPORT ---
EXAM DESCRIPTION: CT - C Spine Wo Con - 10/05/2023 12:16 pm CLINICAL HISTORY: Numbness/tingling;Pain Neck pain, radiculopathy COMPARISON: Thoracic Spine W/o Cont dated 10/05/2023 FINDINGS: The cervical vertebral body heights are maintained. Mild disc/ osteophyte complex seen low er levels of the cervical spine, most notable at C5-6 and C6-7. No evidence of acute cervical spine fracture or subluxation. Prevertebral soft tissues are normal in thickness. IMPRESSION: Moderate lower cervical degenerative spondylosis is present. All CT scans are performed using dose optimization technique as appropriate and may include automated exposure control or mA/KV adjustment according to patient size.
--- NOTE | 2023-10-05 12:28 | RAD REPORT ---
EXAM DESCRIPTION: CT - Thoracic Spine W/o Cont - 10/05/2023 12:16 pm CLINICAL HISTORY: Radiculopathy. pain, paresthesia COMPARISON: No comparisons TECHNIQUE: Axial CT imaging through the thoracic spine was performed with coronal and sagittal re-fo rmatted images. All CT scans are performed using dose optimization technique as appropriate and may include automated exposure control or mA/KV adjustment according to patient size. FINDINGS: Vertebral body heights and disc spaces are maintained. A compression fracture is not prese nt. No significant disc space narrowing. Thoracic spine alignment is within normal limits. No paraspinal masses or hematoma. Intervertebral disc detail is inherently limited on CT. IMPRESSION: No acute finding is demonstrated.
--- NOTE | 2023-10-05 12:30 | RAD REPORT ---
EXAM DESCRIPTION: CT - Spine Lumbar Wo Con - 10/05/2023 12:16 pm CLINICAL HISTORY: Radiculopathy. Numbness/tingling;Pain COMPARISON: No comparisons TECHNIQUE: Axial noncontrast CT imaging of the lumbar spine was performed with coronal and sagittal re-formatted images. All CT scans are performed using dose optimization technique as appropriate and may include automated exposure control or mA/KV adjustment according to patient size. FINDINGS: No acute lumbar spine fracture seen. No aggressive marrow pattern or malalignment. Paraspinal tissues are normal in thickness. No paraspinal abscess or hematoma seen. Posterior disc bulges are present lower lumbar spine resulting in canal narrowing centrally L4-5 and L5-S1. Evaluation is limited by CT technique. IMPRESSION: No acute lumbar spine abnormality seen. Moderate lower lumbar spondylosis is present with central canal narrowing.
--- NOTE | 2023-10-05 12:49 | RAD REPORT ---
EXAM DESCRIPTION: RAD - Knee Left 3 View - 10/05/2023 12:41 pm CLINICAL HISTORY: PAIN COMPARISON: No comparisons TECHNIQUE: Left knee, 3 views. FINDINGS: No fracture, dislocation or periosteal reaction.No joint effusion seen. Mild degenerative spurring most notably along the medial weight-bearing compartment. No soft tissue abnormality. Clinical concerns for internal derangement or occult bony injury could be further assessed with MR im aging. IMPRESSION: No acute osseus abnormality. Mild degenerative changes.
[2023-10-05 13:33] VITALS: BP 163/88; TEMP 98.4; O2SAT 100
== END ==
LOC: ER 11:40
DX: M54.9 Dorsalgia, unspecified (principal); M54.2 Cervicalgia; F17.210 Nicotine dependence, cigarettes, uncomplicated
CPT/HCPCS: 72131; 72125; 72128; 73562; J1100